=== PATIENT | female | born 1975 | race Caucasian/White ===

== ENCOUNTER 2020-04-30 12:09 | Emergency (ER) | payer OTHER ==
[~2020-04-30] VITALS: Ht 167.6 cm; Wt 73.3 kg
--- NOTE | 2020-04-30 12:37 | PHYS DOC ---
Past History Past Medical History: Anxiety, Depression, Hypertension Past Surgical History: Other Additional Past Surgical Histo: BACK FUSION Alcohol Use: Occasionally General Adult EDM: Chief Complaint: FATIGUE HPI: HPI: Patient is a 45-year-old female presents with a chief complaint of fatigue and weakness. Patient has had a approximate 30-40 pound weight loss over the past 3 to 4 months. Patient describes extreme fatigue and generalized weakness. Pat ient has some mild shortness of breath with exertion. Patient denies any pain at this time. Patient has some mild nausea but no vomiting. Patient has constipation for last 3 days but denies blood in her stools. Patient has had a cough. Patient has had some polydipsia over the last several days. Review of Systems: Review of Systems: Constitutional: Denies fever or chills, but has generalized weakness and fatigue Eyes: Denies change in visual acuity HENT: Denies nasal congestion or sore throat Respiratory: Has had a mild cough and has mild shortness of breath with exertion Cardiovascular: Denies chest pain or edema GI: Denies abdominal pain, but has mild nausea but no vomiting, diarrhea or blood in her stools patient has had constipation : Denies dysuria Musculoskeletal: Denies back pain or joint pain Integument: Denies rash Neurologic: Denies headache, focal weakness or sensory changes Endocrine: Has had some polydipsia over the last couple days Lymphatic: Denies swollen glands Psychiatric: Denies depression or anxiety Heart Score: Risk Factors: Risk Factors: DM, Current or recent (<one month) smoker, HTN, HLP, family history of CAD, obesity. Risk Scores: Score 0 - 3: 2.5% MACE over next 6 weeks - Discharge Home Score 4 - 6: 20.3% MACE over next 6 weeks - Admit for Clinical Observation Score 7 - 10: 72.7% MACE over next 6 weeks - Early Invasive Strategies Allergies: Allergies: Allergies Coded Allergies Type Severity Reaction Last Updated Verified amoxicillin Allergy Unknown 04/30/20 Yes Physical Exam: PE: Constitutional: Well developed, well nourished, no acute distress, non-toxic appearance. [] HENT: Normocephalic, atraumatic, bilateral external ears normal, oropharynx moist, no oral exudates, nose normal. [] Eyes: PERRLA, EOMI, conjunctiva normal, no discharge. [] Neck: Normal range of motion, no tenderness, supple, no stridor. [] Cardiovascular:Heart rate regular rhythm, no murmur [] Lungs & Thorax: Bilateral breath sounds clear to auscultation [] Abdomen: Bowel sounds normal, soft, no tenderness, no masses, no pulsatile masses. [] Skin: Warm, dry, no erythema, no rash. [] Back: No tenderness, no CVA tenderness. [] Extremities: No tenderness, no cyanosis, no clubbing, ROM intact, no edema. [] Neurologic: Alert and oriented X 3, normal motor function, normal sensory function, no focal deficits noted. [] Psychologic: Affect normal, judgement normal, mood normal. [] Current Patient Data: Labs: Laboratory Tests Test 04/30/20 12:38 04/30/20 12:41 04/30/20 12:50 Urine Collection Type Unknown Urine Color Yellow Urine Clarity Clear Urine pH 8.5 Urine Specific [place] 1.020 Urine Protein Neg Urine Glucose (UA) Neg mg/dL Urine Ketones (Stick) Neg mg/dL Urine Blood Trace Urine Nitrite Neg Urine Bilirubin Neg Urine Urobilinogen Dipstick 0.2 mg/dL Urine Leukocyte Esterase Neg Urine RBC 3-5 /HPF Urine WBC 1-4 /HPF Urine Squamous Epithelial Cells Mod /LPF Urine Bacteria Few /HPF Urine Mucus Marked /LPF White Blood Count 5.6 x10^3/uL Red Blood Count 4.39 x10^6/uL Hemoglobin 13.3 g/dL Hematocrit 40.7 % Mean Corpuscular Volume 93 fL Mean Corpuscular Hemoglobin 30 pg Mean Corpuscular Hemoglobin Concent 33 g/dL Red Cell Distribution Width 12.4 % Platelet Count 199 x10^3/uL Neutrophils (%) (Auto) 69 % Lymphocytes (%) (Auto) 16 % Monocytes (%) (Auto) 13 % Eosinophils (%) (Auto) 1 % Basophils (%) (Auto) 1 % Neutrophils # (Auto) 3.8 x10^3uL Lymphocytes # (Auto) 0.9 x10^3/uL Monocytes # (Auto) 0.7 x10^3/uL Eosinophils # (Auto) 0.1 x10^3/uL Basophils # (Auto) 0.0 x10^3/uL Sodium Level 137 mmol/L Potassium Level 3.8 mmol/L Chloride Level 102 mmol/L Carbon Dioxide Level 29 mmol/L Anion Gap 6 Blood Urea Nitrogen 9 mg/dL Creatinine 0.8 mg/dL Estimated GFR (Cockcroft-Gault) 76.9 BUN/Creatinine Ratio 11 Glucose Level 89 mg/dL Calcium Level 8.9 mg/dL Total Bilirubin 0.7 mg/dL Aspartate Amino Transf (AST/SGOT) 20 U/L Alanine Aminotransferase (ALT/SGPT) 16 U/L Alkaline Phosphatase 87 U/L Lactate Dehydrogenase 197 U/L Total Protein 7.7 g/dL Albumin 3.7 g/dL Albumin/Globulin Ratio 0.9 Lipase 152 U/L Bedside Urine HCG, Qualitative hcg negative Current Medications Medications (Trade) Dose Ordered Sig/Dolores Route PRN Reason Start Time Stop Time Status Last Admin Dose Admin Iohexol (Omnipaque 300 Mg/ml) 75 ml 1X ONCE IV 04/30/20 13:30 04/30/20 13:35 DC 04/30/20 14:28 Ondansetron HCl (Zofran) 4 mg 1X ONCE IVP 04/30/20 15:00 04/30/20 15:06 DC 04/30/20 14:59 Vital Signs: Vital Signs Date Time Temp Pulse Resp B/P (MAP) Pulse Ox O2 Delivery O2 Flow Rate FiO2 04/30/20 12:20 98.7 101 20 131/96 108 98 Room Air EKG: EKG: EKG interpreted by me normal sinus rhythm with a rate of 90, Normal intervals normal ST segments[] Radiology/Procedures: Radiology/Procedures: [][address] [address] IMAGING REPORT Signed PATIENT: MARIANO BAXTER RACCOUNT: [id number] : 1975 LOCATION: ER AGE: 45 SEX: F EXAM STATUS: REG ER ORD. PHYSICIAN: ELISE GAINES MD REASON: weakness PROCEDURE: PORTABLE CHEST 1V Exam performed: One view chest. Indication: Reason: weakness / Spl. Instructions: / History: Date of Service: 04/30/2020 12:32 PM Comparison: None available. Single AP upright portable view chest findings: Cardiomediastinal silhouette is within limits of normal. Patchy airspace opacities are seen in the right lung base and to a lesser extent left lung base. There is no pleural effusion or pneumothorax. Impression: Bibasilar airspace opacities greater on the right likely infiltrates or atelectasis Electronically signed by: Marisa Tinoco MD (04/30/2020 1:02 PM) [id number] DICTATED AND SIGNED BY: MARISA TINOCO MD DATE: 04/30/20 1302 CC: ELISE GAINES MD; INDERJIT STEEL DO ~ [address] [address] IMAGING REPORT Signed PATIENT: MARIANO BAXTER RACCOUNT: [id number] : 1975 LOCATION: ER AGE: 45 SEX: F EXAM STATUS: REG ER ORD. PHYSICIAN: ELISE GAINES MD REASON: weight loss, fatigue, abnormal chest xray, constipation, PROCEDURE: CT CHEST ABD PELVIS W/CONTRAST EXAM: CT Chest, Abdomen and Pelvis with IV contrast CLINICAL HISTORY: Reason: weight loss, fatigue, abnormal chest xray, constipation, / Spl. Instructions: / History: COMPARISON: None. TECHNIQUE: Helical CT of the chest, abdomen and pelvis was performed following the administration of intravenous contrast. Axial, coronal and sagittal reformatted images were generated. ---PQRS compliance statement - One or more of the following individualized dose reduction techniques were utilized for this study: 1. Automated exposure control 2. Adjustment of the mA and/or kV according to patient size 3. Use of iterative reconstruction technique--- FINDINGS: Chest: Heart is not enlarged. No pericardial effusion. No pleural effusion or pneumothorax. No axillary lymphadenopathy. Mediastinal and hilar lymphadenopathy is seen. For example a right hilar lymph node measures 2.2 x 1.4 cm. A left hilar lymph node measures 2 x 1.3 cm. Mildly prominent right supraclavicular lymph node 1 x 0.7 cm. Subcarinal lymph node measures 1.9 x 1.2 cm. Thyroid is unremarkable. Bilateral groundglass opacities are seen most prominent in the lower lobes and peripheral lungs. Abdomen and Pelvis: Liver and biliary system: Hyperenhancing hepatic lesions likely represent hemangiomas. Gallbladder is normal. No biliary ductal dilatation. Spleen: Unremarkable Pancreas: Unremarkable Adrenal glands: Unremarkable Kidneys: Symmetric nephrograms. Multiple bilateral nonobstructing renal calculi are seen. No hydronephrosis or hydroureter. Lymph nodes/retroperitoneum: No abdominal or pelvic lymphadenopathy. Vessels: Aorta is normal in caliber. Bowel/Peritoneal cavity: Moderate colonic stool content is seen. Appendix is not convincingly seen although no significant right lower quadrant pericecal inflammatory change. No bowel obstruction. No abdominal or pelvic ascites. IUD is seen within the uterus. Bilateral ovarian follicles are seen. Abdominal wall: Unremarkable Bladder: Unremarkable Bones: L4-5 fusion changes are seen. Heterogeneous sclerosis in the ischial tuberosities bilaterally of uncertain clinical significance, possibly reactive. A few scattered sclerotic foci likely bone islands. Multilevel Schmorl's nodes are seen.. IMPRESSION: 1. Groundglass opacities bilaterally, greater in the lung bases, may represent atypical infectious or inflammatory process. Imaging follow-up to resolution is recommended to exclude underlying solid mass. 2. Mediastinal and hilar lymphadenopathy is likely reactive. Recommend close attention on follow-up. 3. Enhancing hepatic lesions likely represent hemangiomas. 4. Multiple nonobstructing renal calculi bilaterally 5. Moderate colonic stool content can be correlated for possible constipation. Electronically signed by: Wyatt Boston MD (04/30/2020 3:05 PM) [id number] DICTATED AND SIGNED BY: WYATT BOSTON MD DATE: 04/30/20 1505 CC: ELISE GAINES MD; INDERJIT STEEL DO ~ Course & Med Decision Making: Course & Med Decision Making Pertinent Labs and Imaging studies reviewed. (See chart for details) [] 45-year-old female presents with weight loss and fatigue over the last several months. Patient is also had a cough. CT is concerning for COVID-19 versus atypical pneumonia but also need follow-up to rule out underlying malignancy. Patient hemodynamically stable and in no respiratory distress. Discussed with patient need for isolation due to COVID testing and short-term fo llow-up with a chemical detection expert. Patient was placed on antibiotics in case this is mycoplasma, I also discussed all the incidental findings on her CT with her. COVID-19 CRITERIA: The patient was evaluated during the global COVID-19 pandemic, and that diagnosis was suspected/considered upon their initial presentation. Their evaluation, treatment and testing was consistent with current guidelines for patients who present with complaints or symptoms that may be related to COVID-19. Dragon Disclaimer: Dragon Disclaimer: This electronic medical record was generated, in whole or in part, using a voice recognition dictation system. Departure Departure: Impression: Primary Impression: Fatigue Additional Impressions: Constipation Nausea Atypical pneumonia Suspected COVID-19 virus infection Disposition: 01 HOME/RESIDENCE PRIOR TO ADM Condition: STABLE Referrals: INDERJIT STEEL DO (PCP) KIM TRUONG MD Patient Instructions: Constipation, Adult, Fatigue, Pneumonia, Adult Additional Instructions: You have been tested for or diagnosed with COVID-19. It is an infection caused by a new type of coronavirus. COVID-19 will cause cold-like or mild flu symptoms in most. It can cause more severe symptoms like problems breathing in some. There is no treatment for COVID-19. The body will clear the infection over time. Self-care will help to ease discomfort. Steps to Take: Self-Care Rest as needed. Healthy habits may help you feel better. Steps include: Choose healthy foods including fruits and vegetables. Drink water throughout the day. Get plenty of sleep each night. If you smoke, try to quit. It may ease breathing. Avoid alcohol. Keep Others Healthy The virus can spread to others. Droplets are released every time you sneeze or cough. The droplets can get into the mouth, nose, or eyes of people near you and lead to infection. To lower the chances of spreading COVID-19 to others: Stay at home until your doctor has said it is safe to leave. If you tested positive this will mean staying isolated until both of the following are true: At least 7 days have passed since the start of illness. You are free of fever for at least 72 hours without the use of medicine. During this time: - Avoid public areas, events, or transportation. Do not return to work or school until your doctor has said it is safe to do so. - Call ahead if you need to go to a medical center. Let them know you may have COVID-19. It will help them guide you where to go. They may also ask you to wear a facemask when you come to the office. - If you call for emergency medical services, let them know you may have COVID- 19. While at home: - Try to avoid close contact with others. Stay about 6 feet away. - If possible, spend most of your time in a separate room from others. - Use a face mask if you will be in close contact with others such as sharing a room or vehicle. - Have someone wipe down common surfaces in the home. Use household roller leveler operator every day on areas like doorknobs, counters, or sinks. - Cough or sneeze into a tissue. Throw the tissue away right after use. If a tissue is not available, cough or sneeze into your elbow. - Wash your hands often. Wash them after sneezing or coughing. Use soap and water and wash for at least 20 seconds. Alcohol based hand wafer cleaner can be used if soap and water is not available. - Do not prepare food for others. Avoid sharing personal items like forks, spoons, or toothbrushes. - Avoid close contact with pets while you are sick. There is no evidence of the virus passing to pets. This is a safety step until more is known about this virus. Isolation can be frustrating. Social interaction can help. Keep in touch with friends and family through phone and tech options. You can still interact with others in your home, just keep a safe distance of about 6 feet. Follow-up: Your doctors office will check in with you to see if there are any changes in your health. You may be asked to keep track of symptoms to share with them. They will also let you know when you are clear to be in public again. Problems to Look Out For: Contact your doctor if your recovery is not going as you expect. Get emergency care if you have problems such as: - Trouble breathing - Nonstop chest pain or pressure - Changes in awareness, confusion, or problems waking - Lips or face have bluish color - Worsening of symptoms If you think you have an emergency, call for emergency medical services right away. As taken from [facility] EMERGENCY DEPARTMENT GENERAL DISCHARGE INSTRUCTIONS THANK YOU for coming to [facility] Emergency Department (ED) today and trusting us with your care. We trust that you had a positive experience in our Emergency Department. If you wish to speak to the department Management you can contact the emergency department at YOUR FOLLOW UP INSTRUCTIONS ARE FOLLOWS: Do you have a private doctor? If you do not have a private doctor, please ask for a resource list of physicians or clinics that may be able to assist you with follow up care. The Emergency Physician has interpreted your x-rays. The X-ray specialist will also review them. If there is a change in the findings you will be notified in 48 hours when at all possible. A lab test or lab culture may have been done, your results will be reviewed and you will be notified if you need a change in treatment. ADDITIONAL INSTRUCTIONS AND INFORMATION Your care today has been supervised by a physician who is specially trained in emergency care. Many problems require more than one evaluation for a complete diagnosis and treatment. We recommend that you schedule your follow up appointment as recommended to ensure complete treatment of your illness or injury. If you are unable to obtain follow up care and continue to have a problem, or if your condition worsens we recommend that you return to the ED. We are not able to safely determine your condition over the phone nor are we able to give sound medical advice over the phone. For these safety reasons, if you call for medical advice we will ask you to come to the ED for further evaluation If you have any questions regarding these discharge instructions please call the ED at . SAFETY INFORMATION In the interest of safety, wellness, and injury prevention; we encourage you to wear your seatbelt, if you smoke; quit smoking, and we encourage your family to use protective helmet for bicycling and other sporting events that present an increased risk for head injury. IF YOUR SYMPTOMS WORSEN OR NEW SYMPTOMS DEVELOP, OR YOU HAVE CONCERNS ABOUT YOUR CONDITION; OR IF YOUR CONDITION WORSENS WHILE YOU ARE WAITING FOR YOUR FOLLOW UP APPOINTMENT; EITHER CONTACT YOUR PRIMARY CARE DOCTOR, THE PHYSICIAN WHOSE NAME AND NUMBER YOU WERE GIVEN, OR RETURN TO THE ED IMMEDIATELY. Scripts Ondansetron Hcl (ZOFRAN) 4 Mg Tablet 1 TAB PO Q6HRS for nausea, #12 TAB Prov: ELISE GAINES MD 04/30/20 Azithromycin (ZITHROMAX) 250 Mg Tablet 1 PKG PO UD for infection, #6 TAB Prov: ELISE GAINES MD 04/30/20 Justification of Admission: Justification of Admission: Justification of Admission Dx: N/A ELISE GAINES MD Apr 30, 2020 12:37
[2020-04-30 13:05] LABS: BASO % 1 % (0-3); EOS # 0.1 x10^3/uL (0.0-0.7); EOS % 1 % (0-3); HEMATOCRIT 40.7 % (36.0-47.0); HEMOGLOBIN 13.3 g/dL (12.0-15.5); LYMPH # 0.9 x10^3/uL (1.0-4.8); LYMPH % 16 % (24-48); MEAN CORPUSCULAR HEMOGLOBIN 30 pg (25-35); MEAN CORPUSCULAR HGB CONC 33 g/dL (31-37); MEAN CORPUSCULAR VOLUME 93 fL (79-100); MONO # 0.7 x10^3/uL (0.0-1.1); MONO % 13 % (0-9); NEUT # 3.8 x10^3uL (1.8-7.7); NEUT % 69 % (31-73); PLATELET COUNT 199 x10^3/uL (140-400); RED BLOOD COUNT 4.39 x10^6/uL (3.50-5.40); RED CELL DISTRIBUTION WIDTH 12.4 % (11.5-14.5); WHITE BLOOD COUNT 5.6 x10^3/uL (4.0-11.0)
--- NOTE | 2020-04-30 13:05 | RAD ---
Exam performed: One view chest. Indication: Reason: weakness / Spl. Instructions: / History: Date of Service: 04/30/2020 12:32 PM Comparison: None available. Single AP upright portable view chest findings: Cardiomediastinal silhouette is within limits of normal. Patchy airspace opacities are seen in the right lung base and to a lesser extent left lung base. There is no pleural effusion or pneumothorax. Impression: Bibasilar airspace opacities greater on the right likely infiltrates or atelectasis Electronically signed by: Marisa Tinoco MD (04/30/2020 1:02 PM) [id number]
[2020-04-30 13:10] LABS: CALCIUM 8.9 mg/dL (8.5-10.1); CREATININE 0.8 mg/dL (0.6-1.0); GFR 76.9; POTASSIUM 3.8 mmol/L (3.5-5.1)
[2020-04-30 13:16] LABS: ALBUMIN 3.7 g/dL (3.4-5.0); ALBUMIN/GLOBULIN RATIO 0.9 (1.0-1.7); TOTAL BILIRUBIN 0.7 mg/dL (0.2-1.0); TOTAL PROTEIN 7.7 g/dL (6.4-8.2)
[2020-04-30 13:27] LABS: COLOR,URINE YELLOW
[2020-04-30 13:28] LABS: BACTERIA,URINE FEW /HPF (0-FEW); BILIRUBIN,URINE NEG (NEG); CLARITY,URINE CLEAR; GLUCOSE,URINE NEG (NEG); NITRITE,URINE NEG (NEG); SQUAMOUS EPITHELIAL CELL,UR MOD /LPF; UROBILINOGEN,URINE 0.2 mg/dL (0.2 mg/dL)
[2020-04-30] MEDS ORDERED: IOHEXOL 300 MG/ML 75 ML VIAL. IV ONE (13:30)
--- NOTE | 2020-04-30 14:15 | EKG ---
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
[2020-04-30 14:49] VITALS: BP 115/83
[2020-04-30] MEDS ORDERED: ONDANSETRON PF 4 MG/2 ML VIAL. IVP ONE (15:00)
--- NOTE | 2020-04-30 15:08 | RAD ---
EXAM: CT Chest, Abdomen and Pelvis with IV contrast CLINICAL HISTORY: Reason: weight loss, fatigue, abnormal chest xray, constipation, / Spl. Instructions: / History: COMPARISON: None. TECHNIQUE: Helical CT of the chest, abdomen and pelvis was performed following the administration of intravenous contrast. Axial, coronal and sagittal reformatted images were generated. ---PQRS compliance statement - One or more of the following individualized dose reduction techniques were utilized for this study: 1. Automated exposure control 2. Adjustment of the mA and/or kV according to patient size 3. Use of iterative reconstruction technique--- FINDINGS: Chest: Heart is not enlarged. No pericardial effusion. No pleural effusion or pneumothorax. No axillary lymphadenopathy. Mediastinal and hilar lymphadenopathy is seen. For example a right hilar lymph node measures 2.2 x 1.4 cm. A left hilar lymph node measures 2 x 1.3 cm. Mildly prominent right supraclavicular lymph node 1 x 0.7 cm. Subcarinal lymph node measures 1.9 x 1.2 cm. Thyroid is unremarkable. Bilateral groundglass opacities are seen most prominent in the lower lobes and peripheral lungs. Abdomen and Pelvis: Liver and biliary system: Hyperenhancing hepatic lesions likely represent hemangiomas. Gallbladder is normal. No biliary ductal dilatation. Spleen: Unremarkable Pancreas: Unremarkable Adrenal glands: Unremarkable Kidneys: Symmetric nephrograms. Multiple bilateral nonobstructing renal calculi are seen. No hydronephrosis or hydroureter. Lymph nodes/retroperitoneum: No abdominal or pelvic lymphadenopathy. Vessels: Aorta is normal in caliber. Bowel/Peritoneal cavity: Moderate colonic stool content is seen. Appendix is not convincingly seen although no significant right lower quadrant pericecal inflammatory change. No bowel obstruction. No abdominal or pelvic ascites. IUD is seen within the uterus. Bilateral ovarian follicles are seen. Abdominal wall: Unremarkable Bladder: Unremarkable Bones: L4-5 fusion changes are seen. Heterogeneous sclerosis in the ischial tuberosities bilaterally of uncertain clinical significance, possibly reactive. A few scattered sclerotic foci likely bone islands. Multilevel Schmorl's nodes are seen.. IMPRESSION: 1. Groundglass opacities bilaterally, greater in the lung bases, may represent atypical infectious or inflammatory process. Imaging follow-up to resolution is recommended to exclude underlying solid mass. 2. Mediastinal and hilar lymphadenopathy is likely reactive. Recommend close attention on follow-up. 3. Enhancing hepatic lesions likely represent hemangiomas. 4. Multiple nonobstructing renal calculi bilaterally 5. Moderate colonic stool content can be correlated for possible constipation. Electronically signed by: Wyatt Cordero MD (04/30/2020 3:05 PM) [id number]
[2020-04-30] MEDS ORDERED: AZIT250T PO (15:53)
[2020-04-30] MEDS ORDERED: ONDA4TAB7 PO (15:53)
--- NOTE | 2020-05-03 08:36 | NUR ---
IP: patient notified of COVID result.
== END 2020-04-30 16:05 | disposition home or self-care (01) ==
LOC: ER 12:09
DX: J18.9 Pneumonia, unspecified organism (principal); K59.00 Constipation, unspecified; R53.83 Other fatigue; R11.0 Nausea; I10 Essential (primary) hypertension; Z88.1 Allergy status to other antibiotic agents; Z20.828 Contact with and (suspected) exposure to other viral communicable diseases
CPT/HCPCS: 36415; 71045; 71260; 74177; 80053; 81001; 81025; 83615; 83690; 84443; 85025; 93005; 96374; 99285; J2405; Q9967; U0003

== ENCOUNTER → 2020-05-20 | Outpatient (CLI) | payer OTHER ==
[2020-04-30 14:49] VITALS: BP 115/83
[~2020-05-20] MED LIST: AZIT250T PO; ONDA4TAB7 PO
--- NOTE | 2020-05-20 11:03 | RAD ---
CT CHEST WO CONTRAST Indication: Groundglass opacity, weight loss Technique: Noncontrast CT imaging was performed of the chest, multiplanar reconstruction images submitted. One or more of the following individualized dose reduction techniques were utilized for this examination: 1. Automated exposure control 2. Adjustment of the mA and/or kV according to patient size 3. Use of iterative reconstruction technique. Comparison: April 30, 2020 Findings: There are persistent prominent areas of groundglass density bilaterally greatest of the lower lobes but also seen in the right middle lobe and minimally of the upper lobes. Overall extent is fairly similar, very slight improvement in the interval. No new infiltrate is identified. There is no pleural or pericardial fluid, pneumothorax, or new significant chest lymphadenopathy. There are again some likely subcentimeter hilar nodes although poorly evaluated on this noncontrast exam also some small mediastinal nodes present. There are small bilateral renal calculi. IMPRESSION: 1. There are persistent prominent areas of groundglass density of the bilateral lungs with lower lobe predominance. Infiltrates appear slightly decreased. Findings are nonspecific with a broad differential. Findings can be associated with opportunistic and nonopportunistic infections including viral pneumonia such as COVID. Findings can be associated with interstitial and eosinophilic pneumonias. Sequela of hypersensitivity pneumonitis or drug toxicity would be in the differential considerations. Acute alveolar disease such as from edema would be considered less likely given lack of significant interval improvement. Sequela of hypersensitivity pneumonitis would be in the differential. Neoplastic etiology is considered much less likely. 2. There are small bilateral renal calculi. Electronically signed by: Archie Jones MD (05/20/2020 11:01 AM) [facility] CENTERAlicia
== END ==
LOC: CT 10:24
PROVIDERS: ATTEND Family Medicine
DX: R91.8 Other nonspecific abnormal finding of lung field (principal); J98.4 Other disorders of lung; N20.0 Calculus of kidney; J12.9 Viral pneumonia, unspecified; J67.9 Hypersensitivity pneumonitis due to unspecified organic dust; J12.89 Other viral pneumonia
CPT/HCPCS: 71250

== ENCOUNTER 2021-10-22 17:25 | Emergency (ER) | payer OTHER ==
[~2021-10-22] VITALS: Ht 167.6 cm; Wt 94.4 kg
[2021-10-22 17:31] VITALS: BP 144/93
[2021-10-22] MEDS ORDERED: LIDOCAINE 2%/EPI 1:100,000 20 ML VIAL. IJ ONE (18:00)
[2021-10-22] MEDS ORDERED: DIPHTH,PERTUSS(ACELL),TET TOX 0.5 ML DISP.SYRIN. VAX IM ONE (18:00)
[2021-10-22] MEDS ORDERED: LIDOCAINE 2%/EPI 1:100,000 20 ML VIAL. ONE (18:09)
--- NOTE | 2021-10-22 18:47 | PHYS DOC ---
Past History Past Medical History: Anxiety, Depression, Hypertension (TANNER SOLIZ) Past Surgical History: Other Additional Past Surgical Histo: BACK FUSION (TANNER SOLIZ) Alcohol Use: Occasionally (TANNER SOLIZ) General Adult EDM: Chief Complaint: LACERATION/AVULSION HPI: HPI: Patient is a 46 year old female who presents with scalp laceration. Patient states she was pulling up a T post when it suddenly was released from the ground and hit her on the forehead. Patient states that she fell backwards onto the grass. Initially, the wound was bleeding fairly significantly, but it has nearly stopped by the time she arrives to the department. She states her t etanus vaccination is about 7 years old. Patient denies loss of consciousness, headache, neck pain, vision changes, nausea/vomiting, amnesia. (TANNER SOLIZ) Review of Systems: Review of Systems: ROS negative or noncontributory except as mentioned in HPI. (TANNER SOLIZ) Current Medications: Current Meds: Current Medications Medications (Trade) Dose Ordered Sig/Dolores Start Time Stop Time Status Last Admin Dose Admin Diphtheria/ Tetanus/Acell Pertussis (Boostrix) 0.5 ml ONCE ONCE 10/22/21 18:00 10/22/21 18:08 DC 10/22/21 18:00 0.5 ML Lidocaine/ Epinephrine (Xylocaine 2%-Epi 1:100,000) 20 ml STK-MED ONCE 10/22/21 18:09 10/22/21 18:09 DC (TANNER SOLIZ) Allergies: Allergies: Allergies Coded Allergies Type Severity Reaction Last Updated Verified amoxicillin Allergy Unknown 04/30/20 Yes (TANNER SOLIZ) Physical Exam: PE: Constitutional: Well developed, well nourished, no acute distress, non-toxic appearance. HENT: Approximately 2 cm curved laceration noted just posterior to the hairline with a small 2 mm laceration inferior to the hairline on the forehead, bilateral external ears normal, nose normal. Eyes: PERRL, EOMI, conjunctiva normal, no discharge. Neck: Normal range of motion, no tenderness. Skin: See above for scalp laceration. Skin otherwise warm, dry, no erythema, no rash. Extremities: No tenderness, no cyanosis, no clubbing, ROM intact, no edema. Neurologic: Alert and oriented x4, normal motor function, normal sensory function, steady and symmetrical upright gait, no focal deficits noted. (TANNER SOLIZ) Current Patient Data: Vital Signs: Vital Signs Date Time Temp Pulse Resp B/P (MAP) Pulse Ox O2 Delivery O2 Flow Rate FiO2 10/22/21 17:31 98.3 78 16 144/93 (110) 99 Room Air 1831: 76 BPM, 119/76, 98% on RA (TANNER SOLIZ) Heart Score: C/O Chest Pain: No (TANNER SOLIZ) Course & Med Decision Making: Course & Med Decision Making Pertinent Labs and Imaging studies reviewed. (See chart for details) (TANNER SOLIZ) Dragon Disclaimer: Dragon Disclaimer: This electronic medical record was generated, in whole or in part, using a voice recognition dictation system. (TANNER SOLIZ) Laceration Repair Lac Repair Indication: Superficial scalp laceration Procedure: The patient was placed in the appropriate position and anesthesia around the laceration was topically applied cotton soaked with 1% lidocaine with epinephrine. The area was then cleansed with sterile saline. The laceration was closed with Dermabond. Total repaired wound length: 2.2 cm. Other Items: The patient tolerated the procedure very well. Complications: No complications. (TANNER SOLIZ) Departure Departure: Impression: Primary Impression: Simple laceration of scalp Disposition: 01 HOME / SELF CARE / HOMELESS Condition: IMPROVED Referrals: MAHESH HUNTER DO (PCP) Patient Instructions: Laceration Care, Adult, [id number] Additional Instructions: EMERGENCY DEPARTMENT GENERAL DISCHARGE INSTRUCTIONS Thank you for coming to [facility] (ED) today and trusting us with you care. We trust that you had a positive experience in our Emergency Department. If you wish to speak to the department management, you may call the director at [phone]. YOUR FOLLOW UP INSTRUCTIONS ARE FOLLOWS: 1. Follow up with your primary care doctor. If you do not have a primary doctor, please ask for a resource list of physicians or clinics that may be able to assist you with follow up care. 2. The emergency provider has interpreted your imaging studies, if any were ordered. The radiology endoscopy support specialist also reviewed them. If there is a change in the findings, you will be notified in 48 hours when at all possible. 3. If a lab test or culture has been done, your results will be reviewed and you will be notified if you need a change in treatment. 4. Follow instructions verbalized to you and refer to the printouts if needed. ADDITIONAL INSTRUCTIONS AND INFORMATION: 1. Your care today has been supervised by a physician who is specially trained in emergency care. Many problems require more than one evaluation for a complete diagnosis and treatment. We recommend that you schedule your follow up appointment as recommended to ensure complete treatment of you illness or injury. If you are unable to obtain follow up care and continue to have a problem, or if your condition worsens, we recommend that you return to the ED. 2. We are not able to safely determine your condition over the phone nor are we able to give sound medical advice over the phone. For these safety reasons, if you call for medical advice we will ask you to come to the ED for further eval uation. 3. If you have any questions regarding these discharge instructions please call the ED at [phone]. SAFETY INFORMATION: In the interest of safety, wellness, and injury prevention; we encourage you to wear your seat belt, if you smoke; quite smoking, and we encourage family to use a protective helmet for bicycling and other sporting events that present an increased risk for head injury. IF YOUR SYMPTOMS WORSEN OR NEW SYMPTOMS DEVELOP, OR YOU HAVE CONCERNS ABOUT YOUR CONDITION; OR IF YOUR CONDITION WORSENS WHILE YOU ARE WAITING FOR YOUR FOLLOW UP APPOINTMENT; EITHER CONTACT YOUR PRIMARY CARE DOCTOR, THE PHYSICIAN WHOSE NAME AND NUMBER YOU WERE GIVEN, OR RETURN TO THE ED IMMEDIATELY. Attending Signature Attending Signature I have reviewed the PA/REPLENISHMENT MERCHANDISING ASSOCIATE's note and plan of care. I was available for consultation as needed during the patient's visit in the emergency department. I agree with the clinical impression, plan, and disposition. (DEVORAH LEMOS DO) TANNER SOLIZ Oct 22, 2021 18:47 DEVORAH LEMOS DO Oct 23, 2021 00:59
== END 2021-10-22 18:51 | disposition home or self-care (01) ==
LOC: ER 17:25
DX: S01.01XA Laceration without foreign body of scalp, initial encounter (principal); I10 Essential (primary) hypertension; Z88.1 Allergy status to other antibiotic agents; W22.8XXA Striking against or struck by other objects, initial encounter; Y93.89 Activity, other specified; Y92.89 Other specified places as the place of occurrence of the external cause; Y99.8 Other external cause status
CPT/HCPCS: 12001; 90471; 90715; 99283